=== PATIENT | male | born 1985 | race African-American/Black ===

== ENCOUNTER 2024-02-25 10:56 | Emergency (ER) | payer OTHER ==
[2024-02-25] MEDS ORDERED: TETRACAINE 0.5% OPHTH SOLN 2 ML BOTTLE ONE (11:06)
[2024-02-25] MEDS ORDERED: FLUORESCEIN NA 1 EA STRIP ONE (11:06)
[2024-02-25 11:08] VITALS: BP 117/68; PULSE 85; RESP 20; TEMP 97.7; BMI 29.0
[2024-02-25] MEDS: FLUORESCEIN NA 1 EA STRIP OS ONE (11:27)
[2024-02-25] MEDS: TETRACAINE 0.5% HCL 0.6ML DROPPER.BOTTLE OS ONE (11:27)
[2024-02-25] MEDS ORDERED: ERYTHROMYCIN 0.5% OPHTHALMIC OINTMENT 3.5 GM TUBE OS SCH (11:30)
[2024-02-25] MEDS ORDERED: ERYTHROMYCIN 0.5% OPHTHALMIC OINTMENT 3.5 GM TUBE ONE (11:31)
== END 2024-02-25 11:37 | disposition home or self-care (01) ==
LOC: JERFT 10:56
DX: H57.89 Other specified disorders of eye and adnexa (principal); H57.12 Ocular pain, left eye; W50.4XXA Accidental scratch by another person, initial encounter; Y93.6A Activity, physical games generally associated with school recess, summer camp and children
CPT/HCPCS: 99283-25